=== PATIENT | female | born 1985 | race Caucasian/White ===

== ENCOUNTER 2021-02-21 23:39 | Emergency (ER) ==
[~2021-02-21] VITALS: Ht 160 cm; Wt 99.5 kg
[2021-02-21] MEDS ORDERED: LEXA1TAB2 PO (23:51)
[2021-02-21] MEDS ORDERED: BIRTHCONTROL PO (23:51)
== END 2021-02-22 05:36 | disposition left against medical advice (07) ==
LOC: M ED 23:39
DX: Z53.29 Procedure and treatment not carried out because of patient's decision for other reasons (principal)

== ENCOUNTER → 2023-06-09 | Outpatient (REF) | payer BC ==
[~2023-06-09] MED LIST: BIRTHCONTROL PO; LEXA1TAB2 PO
== END ==
LOC: M LAB REF 16:11
PROVIDERS: ATTEND Nurse Practitioner Family
DX: R35.0 Frequency of micturition (principal)

== ENCOUNTER 2024-09-12 11:34 | Day surgery (SDC) | payer BC ==
[~2024-09-12] VITALS: Ht 157.5 cm; Wt 108.9 kg
[~2024-09-12 11:34] MED LIST changes: +DROS3TAB PO
[2024-09-12 12:07] LABS: PLATELET COUNT, AUTOMATED 423 10^3/uL (150-450)
[2024-09-12] MEDS: LR 1,000 ML IV SCH (12:14)
[2024-09-12] MEDS ORDERED: ROCURONIUM BROMIDE 50MG/5ML VIAL As Ordered ONE (13:00)
[2024-09-12] MEDS ORDERED: SUGAMMADEX SODIUM 500 MG/5 ML VIAL As Ordered ONE (13:00)
[2024-09-12] MEDS ORDERED: KETOROLAC 30 MG/ML 1 ML VIAL As Ordered ONE (13:00)
[2024-09-12] MEDS ORDERED: dexAMETHasone 4 MG/ML 1 ML VIAL As Ordered ONE (13:00)
[2024-09-12] MEDS ORDERED: LIDOCAINE 2% 100 MG/5 ML SDV (FOR ANES.) As Ordered ONE (13:00)
[2024-09-12] MEDS ORDERED: ONDANSETRON 4MG 2ML VIAL As Ordered ONE (13:00)
[2024-09-12] MEDS ORDERED: MIDAZOLAM INJ 2 MG/2 ML VIAL As Ordered ONE (13:09)
[2024-09-12] MEDS: METHYLENE BLUE 0.5% (5 MG/ML) 10 ML AMP As Ordered ONE (13:35)
[2024-09-12] MEDS ORDERED: ACETAMINOPHEN 1000MG/100ML IV BAG As Ordered ONE (14:00)
[2024-09-12] MEDS ORDERED: LR 1,000 ML IV SCH (14:30)
[2024-09-12] MEDS ORDERED: HYDROMORPHONE HCL 0.5 MG/0.5 ML SYRINGE IV PRN (14:30)
[2024-09-12 16:44] VITALS: BP 115/65; TEMP 97.8; O2SAT 98
== END 2024-09-12 17:04 | disposition home or self-care (01) ==
LOC: M SDC 11:34
PROVIDERS: ATTEND Obstetrics & Gynecology
DX: Z30.2 Encounter for sterilization (principal); Z68.41 Body mass index [BMI] 40.0-44.9, adult; F41.9 Anxiety disorder, unspecified; F32.A Depression, unspecified; Z79.899 Other long term (current) drug therapy
CPT/HCPCS: 36415; 58661; 81025; 85027; 86850; 86900; 86901; 88302; J0131; J0665; J1100; J1885; J2250; J2405; J3010